=== PATIENT | male | born 2000 | race Caucasian/White ===

== ENCOUNTER 2024-03-10 04:43 | Emergency (ER) | payer SELFPAY ==
[~2024-03-10] VITALS: Ht 175.3 cm; Wt 127.0 kg
[2024-03-10 05:00] VITALS: BP 180/103; PULSE 103; RESP 18; TEMP 98.4; O2SAT 97
[2024-03-10 05:05] VITALS: O2SAT 97
[2024-03-10] MEDS: LORazepam 1 MG TAB PO ONE (05:29)
[2024-03-10 06:20] VITALS: BP 180/103; PULSE 103; RESP 18; TEMP 98.4
[2024-03-10 06:21] VITALS: O2SAT 97
[2024-03-10] MEDS: DEXAMETHASONE 4 MG/ML VIAL PO ONE (06:52)
== END 2024-03-10 09:19 | disposition home or self-care (01) ==
LOC: MED 04:43
DX: J35.1 Hypertrophy of tonsils (principal); R06.02 Shortness of breath; J45.909 Unspecified asthma, uncomplicated; E66.9 Obesity, unspecified; Z68.41 Body mass index [BMI] 40.0-44.9, adult
CPT/HCPCS: 36415; 85379; 99283; J1100

== ENCOUNTER 2024-03-12 12:25 | Emergency (ER) | payer SELFPAY ==
[~2024-03-12] VITALS: Ht 175.3 cm; Wt 141.5 kg
[2024-03-12 12:39] VITALS: BP 150/100; PULSE 93; RESP 24; TEMP 98.1; O2SAT 98
[2024-03-12 12:45] VITALS: O2SAT 98
[2024-03-12 13:28] LABS: FLU A ANTIGEN negative (NEGATIVE); FLU B ANTIGEN negative (NEGATIVE)
[2024-03-12] MEDS ORDERED: NIRM1TAB9 PO (14:53)
[2024-03-12] MEDS ORDERED: HYDR25CA1 PO (14:53)
== END 2024-03-12 15:12 | disposition home or self-care (01) ==
LOC: MED 12:25
DX: U07.1 COVID-19 (principal); F41.9 Anxiety disorder, unspecified; J45.909 Unspecified asthma, uncomplicated
CPT/HCPCS: 99283